=== PATIENT | female | born 1975 | race Caucasian/White ===

== ENCOUNTER 2019-03-20 09:27 | Emergency (ER) | payer MEDICAID ==
[2019-03-20] MEDS: IBUPROFEN 600 MG TAB PO (10:32)
== END 2019-03-20 11:02 | disposition home or self-care (01) ==
LOC: FTE 09:27
DX: S00.03XA Contusion of scalp, initial encounter (principal); W20.8XXA Other cause of strike by thrown, projected or falling object, initial encounter; Y92.9 Unspecified place or not applicable
CPT/HCPCS: 99283; Z7502

== ENCOUNTER 2019-05-24 15:49 | Emergency (ER) | payer MEDICAID ==
[2019-05-24 19:25] LABS: ADD MAN DIFF? NO; HEMATOCRIT 42.4 % (37.0-47.0); HEMOGLOBIN 14.1 g/dl (12.0-16.0); MEAN CORPUSCULAR HEMOGLOBIN 28.4 pg (29.0-33.0); MEAN CORPUSCULAR HGB CONC 33.3 g/dl (32.0-37.0); MEAN CORPUSCULAR VOLUME 85.3 fl (82.0-101.0); MEAN PLATELET VOLUME 9.3 fl (7.4-10.4); PLATELET COUNT 284 10^3/UL (140-415); RED BLOOD COUNT 4.97 10^6/ul (4.20-5.40); RED CELL DISTRIBUTION WIDTH 13.2 % (11.5-14.5)
[2019-05-24 19:25] LABS: WHITE BLOOD COUNT 6.7 10^3/ul (4.8-10.8)
[2019-05-24 19:26] LABS: LYMPHOCYTES # 1.3 10^3/ul (0.8-2.9); LYMPHOCYTES % 19.7 % (15.0-51.0); MONOCYTE # 0.4 10^3/ul (0.3-0.9); MONOCYTES % 5.5 % (0.0-11.0); NEUTROPHIL # 4.9 10^3/ul (1.6-7.5)
[2019-05-24 19:27] LABS: EOSINOPHILS # 0.1 10^3/ul (0.0-0.5)
[2019-05-24] MEDS ORDERED: KETOROLAC 15 MG INJ (19:38)
[2019-05-24] MEDS ORDERED: FAMOTIDINE 20 MG INJ (19:38)
[2019-05-24] MEDS ORDERED: ONDANSETRON 4 MG INJ (19:38)
[2019-05-24 19:39] LABS: CHLORIDE 106 mmol/L (97-110); POTASSIUM 4.1 mmol/L (3.5-5.1); SODIUM 141 mmol/L (135-144)
[2019-05-24] MEDS: ONDANSETRON 4 MG INJ IV (19:40)
[2019-05-24] MEDS: SOD CHLORIDE 0.9% 1,000 ML IV (19:41)
[2019-05-24] MEDS: FAMOTIDINE 20 MG INJ IV (19:41)
[2019-05-24 19:42] LABS: ALANINE AMINOTRANSFERASE 23 IU/L (13-69); ALKALINE PHOSPHATASE 87 IU/L (42-121); ANION GAP 10 (5-13); ASPARTATE AMINO TRANSFERASE 31 IU/L (15-46); BILIRUBIN,INDIRECT 0.6 mg/dl (0-1.1); BILIRUBIN,TOTAL 0.6 mg/dl (0.2-1.3); BLOOD UREA NITROGEN 9 mg/dl (7-20); CALCIUM 9.3 mg/dl (8.4-10.2); CARBON DIOXIDE 25 mmol/L (21-31); CREATININE 0.57 mg/dl (0.44-1.00); Estimated GFR > 60 mL/min (>60); GLUCOSE 145 mg/dl (70-220); LIPASE 123 U/L (23-300)
[2019-05-24] MEDS: KETOROLAC 15 MG INJ IV (19:42)
[2019-05-24 19:43] LABS: ALBUMIN 4.7 g/dl (3.3-4.9); ALBUMIN/GLOBULIN RATIO 1.14; TOTAL PROTEIN 8.8 g/dl (6.1-8.1)
[2019-05-24 20:24] LABS: UR CLARITY CLEAR (CLEAR); UR COLOR STRAW (YELLOW); UR GLUCOSE (Dip) NEGATIVE (NEGATIVE); UR SPECIFIC GRAVITY (Dip) 1.006 (1.003-1.030); UR TOTAL PROTEIN (Dip) NEGATIVE (NEGATIVE)
[2019-05-24 20:28] LABS: UR KETONES (Dip) NEGATIVE (NEGATIVE)
[2019-05-24 20:29] LABS: ADD UMIC YES; UR BILIRUBIN (Dip) NEGATIVE (NEGATIVE); UR BLOOD (Dip) NEGATIVE (NEGATIVE); UR LEUKOCYTE ESTERASE (Dip) 3+ Leu/ul (NEGATIVE); UR NITRITE (Dip) NEGATIVE (NEGATIVE); UR RBC 1 /HPF (0-5); UR SQUAMOUS EPITHELIAL CELL FEW /HPF (FEW); UR UROBILINOGEN (Dip) NEGATIVE (NEGATIVE); UR WBC 5 /HPF (0-5)
[2019-05-24 20:30] LABS: UR BACTERIA FEW /HPF (NONE SEEN)
== END 2019-05-24 22:14 | disposition home or self-care (01) ==
LOC: FTE 15:49
DX: R10.13 Epigastric pain (principal); R10.11 Right upper quadrant pain; R11.2 Nausea with vomiting, unspecified
CPT/HCPCS: 36415; 76705; 80053; 81001; 81025; 83690; 84703; 85025; 96361; 96374; 96375; 99285-25